=== PATIENT | male | born 1950 | race Caucasian/White ===

== ENCOUNTER 2016-09-12 15:36 | Inpatient (IN) | payer MEDICARE, OTHER ==
[~2016-09-12] VITALS: Ht 175.3 cm; Wt 75.8 kg
[~2016-09-12 15:36] MED LIST: ADULT LOW DOSE81 MG PO; ALBUTEROL2.5 MG/0.5 INH; ATIVAN1 MG PO; COLACE 100MG C100 MG PO; GLUCOPHAGE500 MG PO; LOPID TAB 600600 MG PO; METOPROLOL PO; NEURONTIN PO; NEXIUM40 MG PO; OMEPRAZOLE20 M1 PO; OXYCODONE HCL20 MG PO; PERCOCET 10-321 EACH PO; PRAVACHOL20 MG PO; PROVENTIL HFA 61 INH INH; REGLAN10 MG PO; VIT C PO; ZANTAC300 MG PO; ZOFRAN8 MG PO; [UNRECOGNIZED DRUG - REMARK] PO
[2016-09-12 17:55] LABS: HEMOGLOBIN 9.4 gm/dl (14.0-17.5); RED BLOOD COUNT 3.47 M/UL (4.20-5.50); WHITE BLOOD COUNT 23.7 K/UL (4.5-11.0)
[2016-09-12 18:31] LABS: BUN/CREATININE RATIO 38 (0-10)
[2016-09-13] MEDS ORDERED: REQUIP2 MG PO (02:25)
[2016-09-13] MEDS ORDERED: OXYCONTIN60 MG PO (02:44)
[2016-09-13] MEDS ORDERED: ALLEGRA ALLERG180 MG PO (02:46)
[2016-09-13 07:16] LABS: HEMOGLOBIN 8.9 gm/dl (14.0-17.5); RED BLOOD COUNT 3.33 M/UL (4.20-5.50); WHITE BLOOD COUNT 20.1 K/UL (4.5-11.0)
[2016-09-13 07:38] LABS: BUN/CREATININE RATIO 30 (0-10)
[2016-09-14] MEDS ORDERED: ALPRAZOLAM0.5 MG PO (02:14)
[2016-09-14] MEDS ORDERED: SENNA8.6 MG PO (06:49)
== END 2016-09-14 12:55 | disposition home or self-care (01) | DRG 180 ==
LOC: ER1 15:36 → ZEROF 22:00 → M/S 22:00
PROVIDERS: Student in an Organized Health Care Education/Training Program; ADMIT Internal Medicine
DX: C34.91 Malignant neoplasm of unspecified part of right bronchus or lung (principal); G93.40 Encephalopathy, unspecified; C79.89 Secondary malignant neoplasm of other specified sites; F17.210 Nicotine dependence, cigarettes, uncomplicated; R13.10 Dysphagia, unspecified; E11.9 Type 2 diabetes mellitus without complications; Z79.84 Long term (current) use of oral hypoglycemic drugs; I10 Essential (primary) hypertension; J44.9 Chronic obstructive pulmonary disease, unspecified; R63.0 Anorexia; Z68.24 Body mass index [BMI] 24.0-24.9, adult; E78.5 Hyperlipidemia, unspecified; Z66 Do not resuscitate; K59.00 Constipation, unspecified; D69.6 Thrombocytopenia, unspecified; Z51.5 Encounter for palliative care; D72.829 Elevated white blood cell count, unspecified
CPT/HCPCS: 70450; 71260; 72125; 73030; 80048; 80053; 81001; 82140; 82550; 82553; 82962; 83605; 83690; 83874; 83880; 84443; 84484; 85025; 85027; 85610; 85730; 87040; 87086; 92610; 93005; 94664; 96361; 96374; 96375; 99285; G0378; J2060; J2310; J2405; J2543; J3370; J7030; J7050; Q9962